=== PATIENT | female | born 1960 | race Caucasian/White ===

== ENCOUNTER 2018-02-13 14:34 | Emergency (ER) | payer MEDICARE, MEDICAID ==
[~2018-02-13] VITALS: Ht 170.2 cm; Wt 70.3 kg
[2018-02-13] MEDS ORDERED: KETOROLAC TROMETH 60MG/2ML VIAL IM ONE (15:30)
[2018-02-13 17:14] VITALS: BP 130/88
== END 2018-02-13 17:18 | disposition home or self-care (01) ==
LOC: ER 14:34
DX: S33.5XXA Sprain of ligaments of lumbar spine, initial encounter (principal); X58.XXXA Exposure to other specified factors, initial encounter; J44.9 Chronic obstructive pulmonary disease, unspecified; Z90.49 Acquired absence of other specified parts of digestive tract; Z90.710 Acquired absence of both cervix and uterus; Z90.89 Acquired absence of other organs; Y93.89 Activity, other specified; Y99.8 Other external cause status; Y92.89 Other specified places as the place of occurrence of the external cause
CPT/HCPCS: 72100; 93005; 96372; 99284; J1885

== ENCOUNTER 2020-08-07 15:36 | Emergency (ER) | payer OTHER, MEDICAID ==
[~2020-08-07] VITALS: Ht 172.7 cm; Wt 72.6 kg
[2020-08-07] MEDS ORDERED: SODIUM CHLORIDE 0.9% 1,000 ML IV ONE (15:45)
[2020-08-07 16:21] LABS: Basophils # (auto) 0 10 ^3/uL (0-0.2); Eosinophils # (auto) 0.2 10 ^3/uL (0-0.8); Hemoglobin 14.3 g/dL (12.2-16.2); Lymphocytes # (auto) 1.6 10 ^3/uL (0.4-5.4); Monocytes # (auto) 0.4 10 ^3/uL (0-1.3)
[2020-08-07 16:25] LABS: Basophils % (auto) 0.4 % (0.0-2.0); Eosinophils % (auto) 3.4 % (0.0-7.0); Hematocrit 41.9 % (36.0-46.0); Lymphocytes % (auto) 25.9 % (10.0-50.0); Mean Corpuscular Hemoglobin 29.4 pg (28.0-32.0); Mean Corpuscular Volume 86.4 fL (80.0-100.0); Monocytes % (auto) 6.6 % (0.0-12.0); Neutrophils # (auto) 3.9 10 ^3/uL (1.6-8.6); Neutrophils % (auto) 63.7 % (37.0-80.0); Platelet Count (auto) 183 10^3/uL (140-450); Red Blood Cells 4.85 10^6/uL (4.0-5.20); Red Cell Distribution Width 12.9 % (11.8-14.3); White Blood Cell 6.1 10^3/uL (4.4-10.8)
[2020-08-07 16:31] LABS: Urine Bacteria NONE SEEN /hpf (None Seen); Urine Blood Negative /uL (Negative); Urine Specific Gravity 1.009 (1.001-1.035); Urine WBC 1 /hpf (0 - 5)
[2020-08-07 16:39] LABS: Albumin 3.9 g/dL (3.4-5.0); BUN/Creatinine Ratio 15.5; Calcium 8.9 mg/dL (8.5-10.1); Potassium 4.3 mmol/L (3.5-5.1)
[2020-08-07 16:42] LABS: Bilirubin, Total 0.4 mg/dL (0.2-1.0); Total Protein 7.1 g/dL (6.4-8.2)
[2020-08-07] MEDS ORDERED: KETOROLAC TROMETH 30 MG/ML 1ML VIAL IV ONE (19:15)
[2020-08-07 19:40] VITALS: BP 111/71
== END 2020-08-07 20:34 | disposition home or self-care (01) ==
LOC: ER 15:36 → EDBD 15:36 → ER 20:34
DX: N39.0 Urinary tract infection, site not specified (principal); M54.5 Low back pain; Z88.6 Allergy status to analgesic agent; Z90.49 Acquired absence of other specified parts of digestive tract
CPT/HCPCS: 36415; 74176; 80053; 81001; 85025; 96361; 96374; 99284; J1885; J7030

== ENCOUNTER 2023-08-20 20:03 | Inpatient (IN) | payer OTHER ==
[~2023-08-20] VITALS: Ht 167.6 cm; Wt 99.3 kg
[2023-08-20] MEDS ORDERED: LACTATED RINGER'S 2,300 ML IV ONE (22:45)
[2023-08-20] MEDS ORDERED: ONDANSETRON HCL 4 MG/2 ML VIAL IV ONE (22:45)
[2023-08-20] MEDS ORDERED: MORPHINE SULFATE 4 MG/ML SYR/VIAL IV ONE (22:45)
[2023-08-20 23:38] LABS: Basophils # (auto) 0 10 ^3/uL (0-0.2); Eosinophils # (auto) 0.1 10 ^3/uL (0-0.8); Eosinophils % (auto) 0.3 % (0.0-7.0); Hematocrit 41.9 % (36.0-46.0); Hemoglobin 14.2 g/dL (12.2-16.2); Lymphocytes # (auto) 0.6 10 ^3/uL (0.4-5.4); Lymphocytes % (auto) 3.1 % (10.0-50.0); Mean Corpuscular Hemoglobin 29.3 pg (28.0-32.0); Mean Corpuscular Hgb Conc. 33.9 g/dL (32.0-36.0); Mean Corpuscular Volume 86.6 fL (80.0-100.0); Monocytes # (auto) 0.6 10 ^3/uL (0-1.3); Monocytes % (auto) 3.3 % (0.0-12.0); Neutrophils # (auto) 18.3 10 ^3/uL (1.6-8.6); Neutrophils % (auto) 93.3 % (37.0-80.0); Red Blood Cells 4.84 10^6/uL (4.0-5.20); White Blood Cell 19.6 10^3/uL (4.4-10.8)
[2023-08-20 23:57] LABS: Alanine Aminotransferase 20 U/L (7-40); Albumin 4.1 g/dL (3.2-4.8); Alkaline Phosphatase 72 U/L (46-116); Anion Gap 9 (5-15); Aspartate Aminotransferase < 8 U/L (13-40); BUN/Creatinine Ratio 22.2 (10.0-20.0); Bilirubin, Total 0.7 mg/dL (0.2-1.0); Blood Alcohol 5.8 mg/dL (<10); Blood Urea Nitrogen 16 mg/dL (9-23); Calcium 9.1 mg/dL (8.7-10.4); Carbon Dioxide 22 mmol/L (20-30); Chloride 108 mmol/L (98-107); Glucose 127 mg/dL (74-106); Lipase 57 U/L (12-53); Magnesium 2.2 mg/dL (1.6-2.6); Potassium 4.1 mmol/L (3.5-5.1); Sodium 139 mmol/L (136-145); Total Protein 6.6 g/dL (5.7-8.2)
[2023-08-20 23:58] LABS: INR 1.02 (0.9-1.15); Partial Thromboplastin Time 25.6 SEC (24.5-34.5); Prothrombin Time 10.7 sec (9.3-11.8)
[2023-08-21] MEDS ORDERED: PIPERACILLIN-TAZOB 3.375GM 100 ML IV ONE (00:45)
[2023-08-21] MEDS ORDERED: metroNIDAZOLE 500MG/100ML 100 ML IV ONE (00:45)
[2023-08-21] MEDS ORDERED: KETOROLAC TROMETH 30 MG/ML 1ML VIAL IV ONE (02:30)
[2023-08-21] MEDS ORDERED: KETOROLAC TROMETH 60MG/2ML VIAL IV ONE (03:45)
[2023-08-21] MEDS ORDERED: VANCOMYCIN PER PHARMACY 0 MG IV SCH (05:15)
[2023-08-21] MEDS ORDERED: DOCUSATE SOD 100 MG CAP PO PRN (05:15)
[2023-08-21] MEDS ORDERED: ACETAMINOPHEN 325 MG TAB PO PRN (05:15)
[2023-08-21] MEDS ORDERED: VANCOMYCIN 1GM/250ML 250 ML IV ONE (05:30)
[2023-08-21 06:13] LABS: Basophils # (auto) 0 10 ^3/uL (0-0.2); Basophils % (auto) 0.2 % (0.0-2.0); Eosinophils # (auto) 0.1 10 ^3/uL (0-0.8); Eosinophils % (auto) 0.8 % (0.0-7.0); Hematocrit 37.6 % (36.0-46.0); Hemoglobin 12.8 g/dL (12.2-16.2); Lymphocytes # (auto) 1.3 10 ^3/uL (0.4-5.4); Lymphocytes % (auto) 9.1 % (10.0-50.0); Mean Corpuscular Hemoglobin 29.4 pg (28.0-32.0); Mean Corpuscular Volume 86.6 fL (80.0-100.0); Monocytes # (auto) 0.5 10 ^3/uL (0-1.3); Monocytes % (auto) 3.8 % (0.0-12.0); Neutrophils # (auto) 12.1 10 ^3/uL (1.6-8.6); Neutrophils % (auto) 86.1 % (37.0-80.0); Red Blood Cells 4.34 10^6/uL (4.0-5.20)
[2023-08-21] MEDS: SODIUM CHLORIDE 0.9% 1,000 ML IV SCH ×2 (06:24→22:09)
[2023-08-21 06:31] LABS: Alanine Aminotransferase 17 U/L (7-40); Albumin 3.6 g/dL (3.2-4.8); Alkaline Phosphatase 63 U/L (46-116); Anion Gap 5 (5-15); Aspartate Aminotransferase 8 U/L (13-40); BUN/Creatinine Ratio 17.5 (10.0-20.0); Bilirubin, Total 1.1 mg/dL (0.2-1.0); Blood Urea Nitrogen 11 mg/dL (9-23); Calcium 8.4 mg/dL (8.7-10.4); Carbon Dioxide 25 mmol/L (20-30); Chloride 108 mmol/L (98-107); Glucose 100 mg/dL (74-106); Potassium 3.8 mmol/L (3.5-5.1); Sodium 138 mmol/L (136-145); Total Protein 5.8 g/dL (5.7-8.2)
[2023-08-21] MEDS ORDERED: NITROGLYCERIN 0.4 MG SL TAB SL PRN (07:00)
[2023-08-21] MEDS ORDERED: MORPHINE SULFATE INJ 2 MG/ml SYRG IV PRN (07:00)
[2023-08-21] MEDS: metroNIDAZOLE 500MG/100ML 100 ML IV SCH ×2 (08:48→14:38)
[2023-08-21] MEDS ORDERED: ALBUTEROL MEDNEB 2.5 mg/3ml NEB ONE (09:23)
[2023-08-21] MEDS ORDERED: ALBUTEROL SULF 2.5 MG/0.5ML(0.5%) NEB SOLN NEB ONE (09:30)
[2023-08-21] MEDS: FAMOTIDINE (10MG/ML) 2ML VL IV SCH ×2 (09:56→22:12)
[2023-08-21] MEDS: MORPHINE SULFATE INJ 2 MG/ml SYRG IV PRN ×2 (13:24→18:36)
[2023-08-21 13:28] VITALS: PULSE 78; RESP 16; O2SAT 98
[2023-08-21 16:29] VITALS: PULSE 71; RESP 15; O2SAT 94
[2023-08-21 16:40] LABS: Lactic Acid w/Reflex 2.2 mmol/L (0.4-2.0)
[2023-08-21] MEDS: VANCOMYCIN 1GM/250ML 250 ML IV SCH (18:28)
[2023-08-21 19:45] VITALS: PULSE 68; RESP 17; O2SAT 93
[2023-08-22] MEDS: metroNIDAZOLE 500MG/100ML 100 ML IV SCH ×3 (01:22→17:47)
[2023-08-22 01:38] LABS: Urine Bacteria FEW /hpf (None Seen); Urine Blood Negative /uL (Negative); Urine Clarity HAZY (Clear); Urine Color Yellow (Yellow); Urine Mucus FEW (None Seen); Urine Protein, UAD Negative (Negative); Urine Specific Gravity 1.019 (1.001-1.035); Urine Urobilinogen Normal (Negative); Urine WBC 13 /hpf (0 - 5); Urine pH 5.5 (5.0-8.0)
[2023-08-22 01:48] LABS: Amphetamine Screen, Urine Neg (NEGATIVE); Barbiturate Scree,Urine Neg (NEGATIVE); Benzodiazephine Screen, Urine Neg (NEGATIVE); Cocaine Screen, Urine Neg (NEGATIVE); Opiate Scree,Urine Pos (NEGATIVE)
[2023-08-22 01:49] LABS: Cannabinoid Screen, Urine Neg (NEGATIVE); Phencyclidine Screen, Urine Neg (NEGATIVE)
[2023-08-22 05:24] LABS: Basophils # (auto) 0 10 ^3/uL (0-0.2); Basophils % (auto) 0.4 % (0.0-2.0); Eosinophils # (auto) 0.2 10 ^3/uL (0-0.8); Eosinophils % (auto) 2.6 % (0.0-7.0); Hematocrit 37.6 % (36.0-46.0); Hemoglobin 12.7 g/dL (12.2-16.2); Lymphocytes # (auto) 1.5 10 ^3/uL (0.4-5.4); Lymphocytes % (auto) 19.7 % (10.0-50.0); Mean Corpuscular Hemoglobin 29.2 pg (28.0-32.0); Mean Corpuscular Hgb Conc. 33.7 g/dL (32.0-36.0); Mean Corpuscular Volume 86.6 fL (80.0-100.0); Monocytes # (auto) 0.6 10 ^3/uL (0-1.3); Monocytes % (auto) 7.8 % (0.0-12.0); Neutrophils # (auto) 5.3 10 ^3/uL (1.6-8.6); Neutrophils % (auto) 69.5 % (37.0-80.0); Nucleated Red Blood Cells % 0.1 %; Red Blood Cells 4.34 10^6/uL (4.0-5.20); Red Cell Distribution Width 13.1 % (11.8-14.3); White Blood Cell 7.6 10^3/uL (4.4-10.8)
[2023-08-22 05:37] LABS: Alanine Aminotransferase 16 U/L (7-40); Alkaline Phosphatase 60 U/L (46-116); Anion Gap 7 (5-15); BUN/Creatinine Ratio 11.3 (10.0-20.0); Blood Urea Nitrogen 7 mg/dL (9-23); Calcium 8.3 mg/dL (8.7-10.4); Carbon Dioxide 25 mmol/L (20-30); Chloride 109 mmol/L (98-107); Glucose 93 mg/dL (74-106); Potassium 3.6 mmol/L (3.5-5.1); Sodium 141 mmol/L (136-145)
[2023-08-22 05:38] LABS: Albumin 3.4 g/dL (3.2-4.8); Aspartate Aminotransferase 8 U/L (13-40); Bilirubin, Total 0.5 mg/dL (0.2-1.0)
[2023-08-22] MEDS: HYDROcodone-ACET 5/325MG TAB PO PRN ×3 (05:55→23:15)
[2023-08-22] MEDS: VANCOMYCIN 1GM/250ML 250 ML IV SCH (06:19)
[2023-08-22] MEDS: MORPHINE SULFATE INJ 2 MG/ml SYRG IV PRN ×3 (07:28→20:03)
[2023-08-22] MEDS: FAMOTIDINE (10MG/ML) 2ML VL IV SCH ×2 (10:32→23:15)
[2023-08-22 11:46] VITALS: PULSE 63; RESP 16; O2SAT 96
[2023-08-22] MEDS ORDERED: cefTRIAXone 1GM/50ML D5W 50 ML IV ONE (13:30)
[2023-08-22] MEDS: SODIUM CHLORIDE 0.9% 1,000 ML IV SCH (13:43)
[2023-08-22] MEDS: ONDANSETRON HCL 4 MG/2 ML VIAL IV PRN ×2 (13:59→20:02)
[2023-08-22 19:30] VITALS: PULSE 84; RESP 20; O2SAT 90
[2023-08-23] VITALS (8 sets, daily range): BP systolic 80–116; BP diastolic 52–70; PULSE 56–93; RESP 16–20; TEMP 97.5–98.3; O2SAT 90–96
[2023-08-23] MEDS: metroNIDAZOLE 500MG/100ML 100 ML IV SCH ×3 (00:51→17:30)
[2023-08-23] MEDS: HYDROcodone-ACET 5/325MG TAB PO PRN ×4 (04:48→21:31)
[2023-08-23 06:41] LABS: Basophils # (auto) 0 10 ^3/uL (0-0.2); Basophils % (auto) 0.3 % (0.0-2.0); Eosinophils # (auto) 0.2 10 ^3/uL (0-0.8); Eosinophils % (auto) 3.5 % (0.0-7.0); Hematocrit 35.5 % (36.0-46.0); Hemoglobin 12.2 g/dL (12.2-16.2); Lymphocytes # (auto) 1.4 10 ^3/uL (0.4-5.4); Lymphocytes % (auto) 25.5 % (10.0-50.0); Mean Corpuscular Hemoglobin 29.8 pg (28.0-32.0); Mean Corpuscular Hgb Conc. 34.3 g/dL (32.0-36.0); Mean Corpuscular Volume 86.8 fL (80.0-100.0); Monocytes # (auto) 0.5 10 ^3/uL (0-1.3); Monocytes % (auto) 9.2 % (0.0-12.0); Neutrophils # (auto) 3.4 10 ^3/uL (1.6-8.6); Neutrophils % (auto) 61.5 % (37.0-80.0); Nucleated Red Blood Cells % 0.1 %; Red Blood Cells 4.08 10^6/uL (4.0-5.20); White Blood Cell 5.5 10^3/uL (4.4-10.8)
[2023-08-23 06:45] LABS: Chloride 110 mmol/L (98-107); Potassium 3.7 mmol/L (3.5-5.1); Sodium 143 mmol/L (136-145)
[2023-08-23 06:46] LABS: Anion Gap 8 (5-15); Calcium 8.5 mg/dL (8.7-10.4); Carbon Dioxide 25 mmol/L (20-30)
[2023-08-23] MEDS: SODIUM CHLORIDE 0.9% 1,000 ML IV SCH ×2 (06:46→23:52)
[2023-08-23 06:52] LABS: Glucose 92 mg/dL (74-106)
[2023-08-23 06:53] LABS: BUN/Creatinine Ratio 7.8 (10.0-20.0); Blood Urea Nitrogen < 5 mg/dL (9-23)
[2023-08-23] MEDS: cefTRIAXone 1GM/50ML D5W 50 ML IV SCH (10:12)
[2023-08-23] MEDS: FAMOTIDINE (10MG/ML) 2ML VL IV SCH ×2 (11:05→21:37)
[2023-08-23] MEDS ORDERED: METR-344 PO (12:10)
[2023-08-23] MEDS: MORPHINE SULFATE INJ 2 MG/ml SYRG IV PRN (23:51)
[2023-08-24] VITALS (9 sets, daily range): BP systolic 114–126; BP diastolic 66–79; PULSE 64–91; RESP 10–20; TEMP 97.7–98.3; O2SAT 68–98
[2023-08-24] MEDS: metroNIDAZOLE 500MG/100ML 100 ML IV SCH ×4 (01:26→22:10)
[2023-08-24] MEDS: HYDROcodone-ACET 5/325MG TAB PO PRN ×2 (02:25→20:29)
[2023-08-24] MEDS ORDERED: KETOROLAC TROMETH 30 MG/ML 1ML VIAL IV ONE (03:15)
[2023-08-24] MEDS ORDERED: KETOROLAC TROMETH 30 MG/ML 1ML VIAL ONE (03:18)
[2023-08-24] MEDS: MORPHINE SULFATE INJ 2 MG/ml SYRG IV PRN ×2 (04:15→22:15)
[2023-08-24 05:33] LABS: Basophils # (auto) 0 10 ^3/uL (0-0.2); Basophils % (auto) 0.3 % (0.0-2.0); Eosinophils # (auto) 0.2 10 ^3/uL (0-0.8); Hematocrit 34.8 % (36.0-46.0); Hemoglobin 11.9 g/dL (12.2-16.2); Lymphocytes # (auto) 1.6 10 ^3/uL (0.4-5.4); Lymphocytes % (auto) 23.9 % (10.0-50.0); Mean Corpuscular Hemoglobin 30.2 pg (28.0-32.0); Mean Corpuscular Hgb Conc. 34.1 g/dL (32.0-36.0); Mean Corpuscular Volume 88.5 fL (80.0-100.0); Monocytes # (auto) 0.5 10 ^3/uL (0-1.3); Monocytes % (auto) 8.2 % (0.0-12.0); Neutrophils # (auto) 4.2 10 ^3/uL (1.6-8.6); Neutrophils % (auto) 64.6 % (37.0-80.0); Nucleated Red Blood Cells % 0.2 %; Red Blood Cells 3.93 10^6/uL (4.0-5.20); Red Cell Distribution Width 13.1 % (11.8-14.3); White Blood Cell 6.5 10^3/uL (4.4-10.8)
[2023-08-24 05:42] LABS: Calcium 8.6 mg/dL (8.7-10.4); Chloride 109 mmol/L (98-107); Potassium 3.9 mmol/L (3.5-5.1); Sodium 139 mmol/L (136-145)
[2023-08-24 05:43] LABS: Anion Gap 7 (5-15); Carbon Dioxide 23 mmol/L (20-30)
[2023-08-24 05:48] LABS: Glucose 103 mg/dL (74-106)
[2023-08-24 06:21] LABS: BUN/Creatinine Ratio 7.1 (10.0-20.0); Blood Urea Nitrogen < 5 mg/dL (9-23)
[2023-08-24] MEDS: cefTRIAXone 1GM/50ML D5W 50 ML IV SCH (08:52)
[2023-08-24] MEDS: FAMOTIDINE (10MG/ML) 2ML VL IV SCH ×2 (08:52→20:29)
[2023-08-24] MEDS ORDERED: LIDOCAINE VISCOUS 2% 15ML UD ONE (08:58)
[2023-08-24] MEDS ORDERED: SODIUM CHLORIDE LOCK 10 ML ONE (08:58)
[2023-08-24] MEDS ORDERED: diphenhdrAMINE HCL 50 MG/1 ML VL ONE (08:59)
[2023-08-24] MEDS: fentaNYL CITRATE 100 MCG/2 ML VL ONE ×2 (12:39→12:42)
[2023-08-24] MEDS: MIDAZOLAM HCL 5 MG/ML-1ML VIAL ONE ×2 (12:39→12:42)
[2023-08-24] MEDS ORDERED: MORPHINE SULFATE INJ 2 MG/ml SYRG IV PRN (14:15)
[2023-08-24] MEDS: SUCRALFATE 1 GM/10 ML ORAL SUSP PO SCH ×2 (18:41→20:29)
[2023-08-24] MEDS: SODIUM CHLORIDE 0.9% 1,000 ML IV SCH (19:30)
[2023-08-25] MEDS: HYDROcodone-ACET 5/325MG TAB PO PRN ×2 (01:28→10:23)
[2023-08-25 05:00] VITALS: BP 110/74; PULSE 65; RESP 18; TEMP 97.8; O2SAT 96
[2023-08-25] MEDS: MORPHINE SULFATE INJ 2 MG/ml SYRG IV PRN (05:04)
[2023-08-25] MEDS: SUCRALFATE 1 GM/10 ML ORAL SUSP PO SCH (06:33)
[2023-08-25 08:00] VITALS: PULSE 69; RESP 18; O2SAT 97
[2023-08-25 09:00] VITALS: BP 116/91; PULSE 79; RESP 19; TEMP 97.8; O2SAT 94
[2023-08-25] MEDS: metroNIDAZOLE 500MG/100ML 100 ML IV SCH (10:15)
[2023-08-25] MEDS: cefTRIAXone 1GM/50ML D5W 50 ML IV SCH (10:15)
[2023-08-25] MEDS: FAMOTIDINE (10MG/ML) 2ML VL IV SCH (10:16)
[2023-08-25] MEDS ORDERED: SUCR1SUS26 PO (10:27)
[2023-08-25] MEDS ORDERED: PANT40TA2 PO ×3 (10:27)
[2023-08-25 13:00] VITALS: BP 109/77; PULSE 76; RESP 19; TEMP 98; O2SAT 96
== END 2023-08-25 17:10 | disposition home or self-care (01) | DRG 872 ==
LOC: EDBD 20:03 → ER 20:03 → TELE 08-21 07:02 → TELE-WESTW 08-22 21:03
PROVIDERS: ADMIT Internal Medicine Pulmonary Disease; ATTEND Student in an Organized Health Care Education/Training Program
PROC: 0DB68ZX Excision of Stomach, Via Natural or Artificial Opening Endoscopic, Diagnostic (ICD-10-PCS; 2023-08-24)
PROC: 0DB48ZX Excision of Esophagogastric Junction, Via Natural or Artificial Opening Endoscopic, Diagnostic (ICD-10-PCS; 2023-08-24)
PROC: 0DB98ZX Excision of Duodenum, Via Natural or Artificial Opening Endoscopic, Diagnostic (ICD-10-PCS; principal; 2023-08-24 12:35)
DX: A41.9 Sepsis, unspecified organism (principal); E87.21 Acute metabolic acidosis; K22.10 Ulcer of esophagus without bleeding; K25.9 Gastric ulcer, unspecified as acute or chronic, without hemorrhage or perforation; K29.70 Gastritis, unspecified, without bleeding; K44.9 Diaphragmatic hernia without obstruction or gangrene; E86.0 Dehydration; K52.9 Noninfective gastroenteritis and colitis, unspecified; J44.9 Chronic obstructive pulmonary disease, unspecified; F41.9 Anxiety disorder, unspecified; Z88.0 Allergy status to penicillin; Z90.710 Acquired absence of both cervix and uterus; Z90.49 Acquired absence of other specified parts of digestive tract
CPT/HCPCS: 36415; 43239; 71045; 74176; 80048; 80053; 80202; 80307; 80320; 81001; 82010; 83605; 83690; 83735; 83880; 83930; 84484; 85025; 85610; 85730; 87040; 87081; 87086; 94640; 99291; G0378; J0696; J1885; J2250; J2405; J2543; J3490

== ENCOUNTER 2025-02-25 15:40 | Emergency (ER) | payer OTHER ==
[~2025-02-25] VITALS: Ht 170.2 cm; Wt 79.2 kg
[~2025-02-25 15:40] MED LIST: METR-344 PO; PANT40TA2 PO; SUCR1SUS26 PO
--- NOTE | 2025-02-25 16:11 | ECG ---
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
--- NOTE | 2025-02-25 17:18 | ED.PDOC ---
SOB-HPI HPI Comments 64 y.o female with PMHx of COPD, [place], and cancer, presents to the ED for a chief complaint of SOB that worsens on exertion x 2 weeks. Patient has not been able to come to the hospital sooner as she is currently taking care of her sister in [place]. Patient states " this is a COPD flare up" and mentions that once she gets a breathing treatment and steroids, she feels better. Patient's SPO2 read at 93% on room air. Patient is not on any home oxygen, denies any cough, fever, chills, chest pain. 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 Hx Family History Family History: Unknown Social History Smoker: Non-Smoker Alcohol: Denies ETOH Use Drugs: Denies Drug Use Lives In: Home Constitutional: denies: chills, diaphoresis, fatigue, fever, malaise, sweats, weakness, others EENTM: denies: blurred vision, double vision, ear bleeding, ear discharge, ear drainage, ear pain, ear ringing, eye pain, eye redness, hearing loss, mouth pain, mouth swelling, nasal discharge, nose bleeding, nose congestion, nose pain, photophobia, tearing, throat pain, throat swelling, voice changes, others Respiratory: reports: SOB at rest, shortness of breath, SOB with excertion; denies: cough, hemoptysis, orthopnea, stridor, wheezing, others Cardiovascular: denies: chest pain, dizzy spells, diaphoresis, Dyspnea on exertion, edema, irregular heart beat, left arm pain, lightheadedness, palpitations, PND, syncope, others Gastrointestinal: denies: abdomen distended, abdominal pain, blood streaked bowels, constipated, diarrhea, dysphagia, difficulty swallowing, hematemesis, melena, nausea, poor appetite, poor fluid intake, rectal bleeding, rectal pain, vomiting, others Genitourinary: denies: abnormal vagina bleeding, burning, dyspareunia, dysuria, flank pain, frequency, hematuria, incontinence, pain, , vagina discharge, urgency, others Neurological: denies: dizziness, fainting, headache, left sided numbness, left sided weakness, numbness, paresthesia, pre-existing deficit, right sided numbness, right sided weakness, seizure, speech problems, tingling, tremors, weakness, others Musculoskeletal: denies: back pain, gout, joint pain, joint swelling, muscle pain, muscle stiffness, neck pain, others Integumetry: denies: bruises, change in color, change in hair/nails, dryness, laceration, lesions, lumps, rash, wounds, others Allergic/Immunocompromised: denies: Difficulty Healing, Frequent Infections, Hives, Itching, others Hematologic/Lymphatic: denies: anemia, blood clots, easy bleeding, easy bruising, swollen glands, others Endocrine: denies: excessive hunger, excessive sweating, excessive thirst, excessive urination, flushing, intolerance to cold, intolerance to heat, unexplained weight gain, unexplained weight loss, others Psychiatric: denies: anxiety, bipolar disorder, depression, hopeless, panic disorder, schizophrenia, sleepless, suicidal, others All Other Systems: Reviewed and Negative Physical Exam General Appearance: No Apparent Distress HEENT: Other (Pupils and face symmetric. Moist mucous membranes.) Neck: Full Range of Motion, Normal Inspection Respiratory: Decreased Breath Sounds, No Accessory Muscle Use, No Respiratory Distress Cardiovascular: No Edema, No JVD, Regular Rate/Rhythm Breast Exam: Deferred Gastrointestinal: Non Tender, Soft Genitalia: Deferred Pelvic: Deferred Rectal: Deferred Extremities: Normal inspection, Normal range of motion, Non-tender, No pedal edema Neurologic: Alert (Oriented x4), Normal Affect, Other (Anxious. Ambulatory w ithout difficulty) Cerebellar Function: NOT DONE Reflexes: NOT DONE Skin: Dry, Normal Color, Warm Lymphatic: NOT DONE Was a procedure done? Was a procedure done?: No Differential Dx Differential Diagnosis: Bronchitis, COPD, Pneumonia, Respiratory Distress, URI X-Ray, Labs, Meds, VS Vital Signs Date Time Temp Pulse Resp B/P (MAP) Pulse Ox O2 Delivery O2 Flow Rate FiO2 02/25/25 19:41 77 18 95 Room Air* 0 21 02/25/25 19:40 97.8 77 18 143/83 (103) 95 97.8 02/25/25 16:03 83 02/25/25 15:51 97.4 79 22 133/90 (104) 93 97.4 Current Medications Medications (Trade) Dose Ordered Sig/Migdalia Route Start Time Stop Time Status Last Admin Albuterol (Ventolin Medneb) 5 mg ONCE ONCE NEB 02/25/25 17:15 02/25/25 17:16 DC 02/25/25 18:04 Ipratropium [place] (Atrovent Medneb) 0.5 mg ONCE ONCE NEB 02/25/25 17:15 02/25/25 17:16 DC 02/25/25 18:04 Dexamethasone Sodium Phosphate (Decadron Injection) 10 mg ONCE ONCE IM 02/25/25 17:15 02/25/25 17:16 DC 02/25/25 19:50 Lorazepam (Ativan Tablet) 1 mg ONCE ONCE PO 02/25/25 17:15 02/25/25 17:16 DC 02/25/25 19:49 X-Ray, Labs, Meds, VS Comment 64-year-old female with a history of anxiety, COPD and [place] complaining of difficulty breathing consistent with an exacerbation of COPD Vitals remarkable for respiratory rate 22, oxygen saturation 93% on room air Exam remarkable for diminished breath sounds, anxiety Rhythm strip independently interpreted by me: Sinus rhythm, rate 79, no ectopy. Patient treated with the following in the ED: Albuterol 5 mg/Atrovent 0.5 mg nebulized, dexamethasone 10 mg IM, Ativan 1 mg p.o. On re-evaluation, patient states she feels better. Vitals were stable, including oxygen saturation which is normal on room air. She is not in respiratory distress and denies chest pain. Patient appears stable for discharge with close outpatient follow-up with her primary physician. Rx Zithromax, prednisone, Ativan Time of 1ST Reevaluation: 17:13 Reevaluation 1ST: Unchanged Time of 2ND Reevaluation: 20:22 Reevaluation 2ND: Improved Patient Education/Counseling: Diagnosis, Treatment, Prognosis Family Education/Counseling: No Family Present Departure 1 Departure Time of Disposition: 20:22 Impression: Primary Impression: COPD exacerbation Additional Impression: Anxiety Disposition: 01 HOME / SELF CARE / HOMELESS Condition: Stable Additional Instructions: Follow-up with your primary doctor in 1-2 days. Return to ER for persistent or worsening symptoms. e-Prescriptions Lorazepam (ATIVAN TABLET) 0.5 Mg Tb 1 TAB PO TID PRN, #6 TAB prn anxiety Prov: LUIS VALLEJO MD 02/25/25 Prednisone (Prednisone) 20 Mg Tab 40 MG PO DAILY for 5 Days, #10 MG Prov: LUIS VALLEJO MD 02/25/25 Azithromycin (Zithromax Z-Satnam) 250 Mg Tab 250 MG PO DAILY for 5 Days, #6 TAB Two tabs p.o. on day 1, then 1 tab daily for the next 4 days. Prov: LUIS VALLEJO MD 02/25/25 Discharged With: Relative Critical Care Note Critical Care Time?: No Stability Stability form required: No I personally scribed for LUIS VALLEJO MD ([email or web address]) on 02/25/25 at 17:18. Electronically submitted by Swapna Suarez ([facility]). LUIS VALLEJO MD Feb 25, 2025 17:18
[2025-02-25] MEDS: IPRATROPIUM BROM 0.5 MG/2.5ML INH SOL NEB ONE (18:04)
[2025-02-25] MEDS: ALBUTEROL SULF 2.5 MG/0.5ML(0.5%) NEB SOLN NEB ONE (18:04)
[2025-02-25 19:40] VITALS: BP 143/83; TEMP 97.8
[2025-02-25 19:41] VITALS: PULSE 77; RESP 18; O2SAT 95
[2025-02-25] MEDS: LORazepam 0.5 MG TAB PO ONE (19:49)
[2025-02-25] MEDS: DexAMETHasone SOD PHOS 10MG/1ML VIAL INJ IM ONE (19:50)
[2025-02-25] MEDS ORDERED: LORA-1121 PO (20:25)
[2025-02-25] MEDS ORDERED: AZITTAB PO (20:25)
[2025-02-25] MEDS ORDERED: PRED20TA2 PO (20:25)
== END 2025-02-25 22:03 | disposition home or self-care (01) ==
LOC: ER 15:42
DX: J44.1 Chronic obstructive pulmonary disease with (acute) exacerbation (principal); F41.9 Anxiety disorder, unspecified; Z90.49 Acquired absence of other specified parts of digestive tract; Z90.710 Acquired absence of both cervix and uterus; Z95.0 Presence of cardiac pacemaker; Z98.890 Other specified postprocedural states
CPT/HCPCS: 93005; 94640; 96372; 99283; J1100

== ENCOUNTER 2025-05-14 09:02 | Emergency (ER) | payer OTHER ==
[~2025-05-14] VITALS: Ht 170.2 cm; Wt 79.5 kg
[~2025-05-14 09:02] MED LIST changes: +AZITTAB PO; +LORA-1121 PO; +PRED20TA2 PO
--- NOTE | 2025-05-14 09:52 | ED.PDOC ---
Musculoskeletal HPI Comments 64 year old female was BIBA for the c/c of moderate/severe Left Ankle pain w/ associated Swelling. Pt states that she experienced a Mechanical fall last night after she tripped while she was feeding her dogs. Reports she inverted her ankle on uneven pavement. Pt is noted to be in a wheel chair and notes that she cannot bear weight due to her pain. Pts left ankle is noted to have swelling with localized pain to the lateral malleous with no alleviating factors at this time. Possible Fracture noted. No other associated modifiers or symptoms at this time. Denies syncopal event Not able to bear weight Denies previous surgeries to the ankle Denies fever chills night sweats nausea vomiting Denies any changes to her medications Chief Complaint: Lower Extremity Time Seen by MD: 09:44 Primary Care Provider: UNKNOWN Reviewed Notes: Nurses Notes, Medications, Allergies Allergies: Coded Allergies: Diphenhydramine (Verified Allergy, Severe, 02/13/18) Penicillins (Verified Allergy, Unknown, 08/07/20) Home Meds Active Scripts Ibuprofen Micronized (Ibuprofen) 600 Mg Tab, 600 MG PO TIDP PRN for 10 Days, #30 TAB 0 Refills Prov:FANTASMA CHOU CIGARETTE EXAMINER 05/14/25 Lorazepam (ATIVAN TABLET) 0.5 Mg Tb, 1 TAB PO TID PRN, #6 TAB prn anxiety Prov:LUIS VALLEJO MD 02/25/25 Prednisone (Prednisone) 20 Mg Tab, 40 MG PO DAILY for 5 Days, #10 MG Prov:LUIS VALLEJO MD 02/25/25 Azithromycin (Zithromax Z-Satnam) 250 Mg Tab, 250 MG PO DAILY for 5 Days, #6 TAB Two tabs p.o. on day 1, then 1 tab daily for the next 4 days. Prov:LUIS VALLEJO MD 02/25/25 Pantoprazole Sodium Sesquihydr (Protonix) 40 Mg Tab, 40 MG PO BID, #60 TAB Prov:TENZIN ALVARADO MD 08/25/23 Sucralfate (CARAFATE SUSP) 1 Gm/10 Ml Ss, 1 GM PO QIDACHS for 30 Days, #1200 ML Prov:TENZIN ALVARADO MD 08/25/23 Metronidazole (Flagyl) 500 Mg Tab, 1 TAB PO TID, #15 TAB Prov:TENZIN ALVARADO MD 08/23/23 Information Source: Patient Mode of Arrival: EMS Location: Left Extremity Location: Ankle Timing: Hours Prehospital treatment: None Severity: Moderate Able to Move Extremity: No Bear Weight: No Pain: Severe Hand Dominance: Right Mechanism: None Circumstances: Fall Onset of Symptoms: After Trauma Symptoms: Swelling, Pain DVT Risk Factors: NONE Last Tetanus: Unknown Associated signs and symptoms: Ankle pain Past Medical History PAST MEDICAL HISTORY: Anxiety, Cancer, COPD, [place] Surgical History: Appendectomy, Cholecystectomy, Hysterectomy, Pacemaker 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 Family History Family History: Unknown Social History Smoker: Non-Smoker Alcohol: Denies ETOH Use Drugs: Denies Drug Use Lives In: Home Constitutional: denies: chills, diaphoresis, fatigue, fever, malaise, sweats, weakness, others EENTM: denies: blurred vision, double vision, ear bleeding, ear discharge, ear drainage, ear pain, ear ringing, eye pain, eye redness, hearing loss, mouth pain, mouth swelling, nasal discharge, nose bleeding, nose congestion, nose pain, photophobia, tearing, throat pain, throat swelling, voice changes, others Respiratory: denies: cough, hemoptysis, orthopnea, SOB at rest, shortness of breath, SOB with excertion, stridor, wheezing, others Cardiovascular: denies: chest pain, dizzy spells, diaphoresis, Dyspnea on ex ertion, edema, irregular heart beat, left arm pain, lightheadedness, palpitations, PND, syncope, others Gastrointestinal: denies: abdomen distended, abdominal pain, blood streaked bowels, constipated, diarrhea, dysphagia, difficulty swallowing, hematemesis, melena, nausea, poor appetite, poor fluid intake, rectal bleeding, rectal pain, vomiting, others Genitourinary: denies: abnormal vagina bleeding, burning, dyspareunia, dysuria, flank pain, frequency, hematuria, incontinence, pain, , vagina discharge, urgency, others Neurological: denies: dizziness, fainting, headache, left sided numbness, left sided weakness, numbness, paresthesia, pre-existing deficit, right sided numbness, right sided weakness, seizure, speech problems, tingling, tremors, weakness, others Musculoskeletal: reports: others (Left Ankle pain); denies: back pain, gout, joint pain, joint swelling, muscle pain, muscle stiffness, neck pain Integumetry: denies: bruises, change in color, change in hair/nails, dryness, laceration, lesions, lumps, rash, wounds, others Allergic/Immunocompromised: denies: Difficulty Healing, Frequent Infections, Hives, Itching, others Hematologic/Lymphatic: denies: anemia, blood clots, easy bleeding, easy bruising, swollen glands, others Endocrine: denies: excessive hunger, excessive sweating, excessive thirst, excessive urination, flushing, intolerance to cold, intolerance to heat, unexplained weight gain, unexplained weight loss, others Psychiatric: denies: anxiety, bipolar disorder, depression, hopeless, panic disorder, schizophrenia, sleepless, suicidal, others All Other Systems: Reviewed and Negative Physical Exam General Appearance: Moderate Distress, Normal, Obese HEENT: Normal ENT Inspection, Pharynx Normal, TMs Normal Neck: Full Range of Motion, Non-Tender, Normal, Normal Inspection Respiratory: Chest Non-Tender, Lungs Clear, No Accessory Muscle Use, No Respiratory Distress, Normal Breath Sounds Cardiovascular: No Murmur, No Gallop, Regular Rate/Rhythm Breast Exam: Deferred Gastrointestinal: No Organomegaly, Non Tender, No Pulsatile Mass, Normal Bowel Sounds, Soft Genitalia: Deferred Pelvic: Deferred Rectal: Deferred Extremities: No calf tenderness, Normal capillary refill, Normal inspection, Normal range of motion, Non-tender, No pedal edema Musculoskeletal : Location: Left Extremity Location: Ankle (Gross abnormality and swelling with localized pain to the lateral Malleous, Possible Fracture) Apperance: Normal Neurologic: Alert, No Motor Deficits, Normal Affect, Normal Mood, No Sensory Deficits Cerebellar Function: Normal Reflexes: Normal Skin: Dry, Normal Color, Warm Lymphatic: No Adenopathy Was a procedure done? Was a procedure done?: No Differential Diagnosis EXT Differential Diagnosis: Cellulitis, Fracture, Sprain, Dislocation, Contusion, Strain, Neurovascular injury, Arthritis, Bursitis X-Ray, Labs, Meds, VS Vital Signs Date Time Temp Pulse Resp B/P (MAP) Pulse Ox O2 Delivery O2 Flow Rate FiO2 05/14/25 10:56 94 18 103/69 05/14/25 10:18 94 18 103/69 05/14/25 10:15 Room Air* 0 21 05/14/25 09:10 98.6 84 17 110/72 (15) 97 98.6 Current Medications Medications (Trade) Dose Ordered Sig/Migdalia Route Start Time Stop Time Status Last Admin Morphine Sulfate 4 mg ONCE ONCE IM 05/14/25 10:00 05/14/25 10:01 DC 05/14/25 10:18 X-Ray, Labs, Meds, VS Comment 64 year old female was BIBA for the c/c of 09/09 Left Ankle pain w/ associated Swelling. Patient arrives alert and oriented, ABC's intact, afebrile, vital signs stable, saturating well in room air Ankle X-Ray Ordered: Diagnostic imaging ordered by me and results interpreted by radiology :FINDINGS/IMPRESSION: There is a ossific density adjacent to the lateral talus which may represent a avulsive fracture. If clinically indicated, consider further evaluation with MRI. Small plantar and posterior calcaneal enthesophyte s. Workup: XR Ankle Findings: No fracture or dislocation My wet read reveals no apparent acute bony abnormality, no FB, minimal to no soft tissue swelling and appropriate alignment. Presentation most consistent with Ankle Sprain. Patient does not currently demonstrate complications of sprain such as compartment syndrome, arterial or nerve injury. Differentials considered but not limited to: sprain, fracture, achilles tendon rupture, Maisonneuve fracture, distal fibula avulsion fracture, bi/tri-malleolar fracture, neurovascular compromise. The joint itself is non-irritable with ROM and there is no overlying redness and warmth to suggest injection. The Achilles and dorsiflexion tendon are non-tender and extension is intact. Disposition: Discharge. Supportive bracing provided. Patient was placed in an air-splint, WBAT. RICE. Strict return precautions and instructions to follow up with primary MD within 24-48 hours for further evaluation. May benefit from additional imaging such as stress views or MRI. Patient was given: Morphine 4mg IM_. Tolerated medications with no adverse reaction. On reevaluation, patient had symptomatic improvement. Patient is stable for discharge at this time. External notes reviewed. Test results and diagnostic imaging interpreted. All diagnostic findings, discharge care, education and instructions provided Follow-up with PCP in 2 to 3 days Patient verbalized understanding and agreed to treatment plan Vital signs stable, afebrile, no acute distress noted Patient ambulatory with strong steady gait Advised to return precautions for any new or worsening symptoms, return to ER immediately for re-evaluation Patient is aware that the purpose of this visit was for an acute medical emergency requiring emergent stabilization. Chronic conditions, including malignancies have not been ruled out. Patient is instructed to follow up with PCP as directed and discharge instructions for continued care and workup. If unable to arrange follow-up, patient is to return to the emergency department for reassessment. Patient (parent or legal guardian if applicable) was given verbal and written discharge instructions and acknowledges understanding. Additional MDM Review of External, Non-ED records: External records reviewed. Discussion with independent historian (EMS, family) history obtained from the patient/parents (if applicable) at bedside Chronic conditions affecting care: None Social determinants of health affecting care: None Time of 1ST Reevaluation: 10:16 Reevaluation 1ST: Unchanged Time of 2ND Reevaluation: 10:54 Reevaluation 2ND: Improved Patient Education/Counseling: Diagnosis, Treatment Family Education/Counseling: No Family Present Departure 1 Departure Time of Disposition: 10:54 Impression: Primary Impression: Ankle sprain Qualified Codes: S93.402A - Sprain of unspecified ligament of left ankle, initial encounter Disposition: HOME / SELF CARE / HOMELESS Condition: Fair e-Prescriptions Ibuprofen Micronized (Ibuprofen) 600 Mg Tab 600 MG PO TIDP PRN for 10 Days, #30 TAB 0 Refills Prov: FANTASMA CHOU NP 05/14/25 Critical Care Note Critical Care Time?: No Stability Stability form required: No Heart Score Heart Score: Heart Score Response (Comments) Value History N/A 0 EKG N/A 0 Age N/A 0 Risk Factors N/A 0 Troponin N/A 0 Total 0 I personally scribed for FANTASMA CHOU NP ([email or web address]) on 05/14/25 at 09:52. Electronically submitted by Lino Lazcano ([email or web address]). I personally scribed for FANTASMA CHOU NP ([email or web address]) on 05/14/25 at 10:33. Electronically submitted by Lino Lazcano ([email or web address]). FANTASMA CHOU NP May 14, 2025 09:52
[2025-05-14] MEDS: MORPHINE SULFATE 4 MG/ML SYR/VIAL IM ONE (10:18)
--- NOTE | 2025-05-14 10:27 | DVH ---
CLINICAL INDICATION: Trauma TECHNIQUE: 3 radiographic views of the left ankle were obtained. Comparison: None FINDINGS/IMPRESSION: There is a ossific density adjacent to the lateral talus which may represent a avulsive fracture. If clinically indicated, consider further evaluation with MRI. Small plantar and posterior calcaneal en thesophytes.
[2025-05-14] MEDS ORDERED: IBUP1TAB5 PO (10:55)
[2025-05-14 11:10] VITALS: BP 116/74; PULSE 82; RESP 16; TEMP 98.7; O2SAT 96
== END 2025-05-14 11:14 | disposition home or self-care (01) ==
LOC: ER 09:02 → EDBD 09:02 → EDUNIT# 09:02 → ER 11:14
DX: S93.402A Sprain of unspecified ligament of left ankle, initial encounter (principal); F41.9 Anxiety disorder, unspecified; J44.9 Chronic obstructive pulmonary disease, unspecified; Z90.710 Acquired absence of both cervix and uterus; Z90.49 Acquired absence of other specified parts of digestive tract; Z95.0 Presence of cardiac pacemaker; Z79.899 Other long term (current) drug therapy; Z88.0 Allergy status to penicillin; W01.0XXA Fall on same level from slipping, tripping and stumbling without subsequent striking against object, initial encounter; Y93.89 Activity, other specified; Y92.89 Other specified places as the place of occurrence of the external cause; Y99.8 Other external cause status
CPT/HCPCS: 73610; 96372; 99283; J2270

== ENCOUNTER 2025-05-27 10:08 | Emergency (ER) | payer OTHER ==
[~2025-05-27] VITALS: Ht 170.2 cm; Wt 79.5 kg
[~2025-05-27 10:08] MED LIST changes: +IBUP1TAB5 PO
--- NOTE | 2025-05-27 10:28 | ED.PDOC ---
Back pain HPI HPI Comments 64 year old female with PMHx of COPD, OK, cervical cancer, presents to the ED for ongoing left sided ankle pain s/p tripping while feeding her dogs x 2 weeks ago. Patient reports she inverted her ankle on uneven pavement, was seen at the ED and had X rays done which showed "a ossific density adjacent to the lateral talus which may represent a avulsive fracture" and was advised to come back in if pain persisted or worsened. She denies any alleviating factors at this time. Additionally, patient reports feeling stressed and is requesting a breathing treatment due to hx of panic disorder exacerbating SOB. At this time, patient's SPO2 reads 96% RA. Time Seen by MD: 10:17 Primary Care Provider: UNKNOWN Reviewed Notes: Nurses Notes, Medications, Allergies (NKDA) Allergies: Coded Allergies: Diphenhydramine (Verified Allergy, Severe, 02/13/18) Penicillins (Verified Allergy, Unknown, 08/07/20) Home Meds Active Scripts Ibuprofen Micronized (Ibuprofen) 600 Mg Tab, 600 MG PO TIDP PRN for 10 Days, #30 TAB 0 Refills Prov:FANTASMA CHOU [employer] 05/14/25 Lorazepam (ATIVAN TABLET) 0.5 Mg Tb, 1 TAB PO TID PRN, #6 TAB prn anxiety Prov:LUIS VALLEJO MD 02/25/25 Prednisone (Prednisone) 20 Mg Tab, 40 MG PO DAILY for 5 Days, #10 MG Prov:LUIS VALLEJO MD 02/25/25 Azithromycin (Zithromax Z-Satnam) 250 Mg Tab, 250 MG PO DAILY for 5 Days, #6 TAB Two tabs p.o. on day 1, then 1 tab daily for the next 4 days. Prov:LUIS VALLEJO MD 02/25/25 Pantoprazole Sodium Sesquihydr (Protonix) 40 Mg Tab, 40 MG PO BID, #60 TAB Prov:TENZIN ALVARADO MD 08/25/23 Sucralfate (CARAFATE SUSP) 1 Gm/10 Ml Ss, 1 GM PO QIDACHS for 30 Days, #1200 ML Prov:TENZIN ALVARADO MD 08/25/23 Metronidazole (Flagyl) 500 Mg Tab, 1 TAB PO TID, #15 TAB Prov:TENZIN ALVARADO MD 08/23/23 Information Source: Patient Mode of Arrival: Ambulatory Timing: Weeks (2) Duration: Since onset Severity: Moderate Quality: Aching Onset: Fall Circumstance: Other History of: None Past Medical History PAST MEDICAL HISTORY: Anxiety, Cancer, COPD, [place] Surgical History: Appendectomy, Cholecystectomy, Hysterectomy, Pacemaker 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: Denies all 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 Family History Family History: Unknown Social History Smoker: Non-Smoker Alcohol: Denies ETOH Use Drugs: Denies Drug Use Lives In: Home Constitutional: denies: chills, diaphoresis, fatigue, fever, malaise, sweats, weakness, others EENTM: denies: blurred vision, double vision, ear bleeding, ear discharge, ear drainage, ear pain, ear ringing, eye pain, eye redness, hearing loss, mouth pain, mouth swelling, nasal discharge, nose bleeding, nose congestion, nose pain, photophobia, tearing, throat pain, throat swelling, voice changes, others Respiratory: denies: cough, hemoptysis, orthopnea, SOB at rest, shortness of breath, SOB with excertion, stridor, wheezing, others Cardiovascular: denies: chest pain, dizzy spells, diaphoresis, Dyspnea on exertion, edema, irregular heart beat, left arm pain, lightheadedness, palpitations, PND, syncope, others Gastrointestinal: denies: abdomen distended, abdominal pain, blood streaked bowels, constipated, diarrhea, dysphagia, difficulty swallowing, hematemesis, melena, nausea, poor appetite, poor fluid intake, rectal bleeding, rectal pain, vomiting, others Genitourinary: denies: abnormal vagina bleeding, burning, dyspareunia, dysuria, flank pain, frequency, hematuria, incontinence, pain, , vagina discharge, urgency, others Neurological: denies: dizziness, fainting, headache, left sided numbness, left sided weakness, numbness, paresthesia, pre-existing deficit, right sided nu mbness, right sided weakness, seizure, speech problems, tingling, tremors, weakness, others Musculoskeletal: reports: others (left ankle pain ); denies: back pain, gout, joint pain, joint swelling, muscle pain, muscle stiffness, neck pain Integumetry: denies: bruises, change in color, change in hair/nails, dryness, laceration, lesions, lumps, rash, wounds, others Allergic/Immunocompromised: denies: Difficulty Healing, Frequent Infections, Hives, Itching, others Hematologic/Lymphatic: denies: anemia, blood clots, easy bleeding, easy bruising, swollen glands, others Endocrine: denies: excessive hunger, excessive sweating, excessive thirst, excessive urination, flushing, intolerance to cold, intolerance to heat, unexplained weight gain, unexplained weight loss, others Psychiatric: denies: anxiety, bipolar disorder, depression, hopeless, panic disorder, schizophrenia, sleepless, suicidal, others All Other Systems: Reviewed and Negative Physical Exam General Appearance: Mild Distress HEENT: Normal ENT Inspection, Pharynx Normal, TMs Normal Neck: Full Range of Motion, Non-Tender, Normal, Normal Inspection Respiratory: Chest Non-Tender, Lungs Clear, No Accessory Muscle Use, No Respiratory Distress, Normal Breath Sounds Cardiovascular: No Edema, No JVD, No Murmur, No Gallop, Normal Peripheral Pulses, Regular Rate/Rhythm Breast Exam: Deferred Gastrointestinal: No Organomegaly, Non Tender, No Pulsatile Mass, Normal Bowel Sounds, Soft Genitalia: Deferred Pelvic: Deferred Rectal: Deferred Extremities: No calf tenderness, Normal capillary refill, No pedal edema Musculoskeletal : Location: Left Extremity Location: Ankle Apperance: Limited ROM, Tenderness: Moderate Neurologic: Alert, structurer II-XII nml as Tested, No Motor Deficits, Normal Affect, Normal Mood, No Sensory Deficits Cerebellar Function: Normal Reflexes: Normal Skin: Dry, Normal Color, Warm Lymphatic: No Adenopathy Was a procedure done? Was a procedure done?: No Back Pain Differential Dx Differential Diagnosis: Fracture, Musculoskeletal Pain, Strain X-Ray, Labs, Meds, VS Vital Signs Date Time Temp Pulse Resp B/P (MAP) Pulse Ox O2 Delivery O2 Flow Rate FiO2 05/27/25 10:24 98.9 82 20 122/77 (92) 96 98.9 X-ray of the left ankle shows: IMPRESSION: Probable fracture of the lateral cortex of the calcaneus or talus, only seen on the oblique film. Recommend follow-up noncontrast CT scan of the left ankle for better characterization. At this time, the patient is being discharged and will follow up with the primary care doctor The patient was placed in a stirrup splint and given crutches and gait training Images Reviewed?: Images reviewed and evaluated by me Time of 1ST Reevaluation: 11:30 Reevaluation 1ST: Unchanged Patient Education/Counseling: Diagnosis, Treatment, Prognosis, Need For Follow Up Family Education/Counseling: No Family Present SEPSIS Sepsis Screen Physician Orders L Ankle 3 View (05/27/25 10:27) Vital Signs Date Time Temp Pulse Resp B/P (MAP) Pulse Ox O2 Delivery O2 Flow Rate FiO2 05/27/25 10:24 98.9 82 20 122/77 (92) 96 98.9 Departure 1 Departure Time of Disposition: 11:19 Impression: Primary Impression: Closed left ankle fracture Qualified Codes: S82.892A - Other fracture of left lower leg, initial encounter for closed fracture Disposition: 01 HOME / SELF CARE / HOMELESS Condition: Fair Discharged With: Self Critical Care Note Critical Care Time?: No Stability Stability form required: No I personally scribed for TERRI GUILLEN MD ([email or web address]) on 05/27/25 at 10:28. Electronically submitted by Swapna Suarez ([facility]). TERRI GUILLEN MD May 27, 2025 10:28
--- NOTE | 2025-05-27 11:04 | DVH ---
EXAM: XY L ANKLE 3 VIEW HISTORY: trauma COMPARISON: XY L ANKLE 3 VIEW on DOS: 05/14/25 TECHNIQUE: Three views of the left ankle were performed. FINDINGS: Probable fracture fragment arising from the lateral aspect of the talus or calcaneus, only seen on the oblique film. No other fractures are identified about the left ankle. The mortise is inta ct. Plantar calcaneal bone spur, os peroneum, and Achilles insertion enthesophyte are incidentally no donavan. IMPRESSION: Probable fracture of the lateral cortex of the calcaneus or talus, only seen on the oblique film. Rec ommend follow-up noncontrast CT scan of the left ankle for better characterization.
[2025-05-27 11:24] VITALS: PULSE 82; RESP 18; O2SAT 98
[2025-05-27 11:25] VITALS: BP 122/77; PULSE 82; RESP 20; TEMP 98.9; O2SAT 96
[2025-05-27] MEDS: ACETAMINOPHEN 325 MG TAB PO ONE (11:28)
[2025-05-27] MEDS: HYDROcodone-ACET 5/325MG TAB PO ONE (11:31)
== END 2025-05-27 11:46 | disposition home or self-care (01) ==
LOC: ER 10:11
DX: S82.892A Other fracture of left lower leg, initial encounter for closed fracture (principal); F41.9 Anxiety disorder, unspecified; I25.2 Old myocardial infarction; J44.9 Chronic obstructive pulmonary disease, unspecified; Z79.899 Other long term (current) drug therapy; Z85.41 Personal history of malignant neoplasm of cervix uteri; Z90.49 Acquired absence of other specified parts of digestive tract; Z90.710 Acquired absence of both cervix and uterus; Z95.0 Presence of cardiac pacemaker; Z88.0 Allergy status to penicillin; W01.0XXA Fall on same level from slipping, tripping and stumbling without subsequent striking against object, initial encounter; Y93.89 Activity, other specified; Y92.89 Other specified places as the place of occurrence of the external cause; Y99.8 Other external cause status
CPT/HCPCS: 29515; 73610